=== PATIENT | male | born 1975 | race Two or more races ===

== ENCOUNTER 2016-09-03 16:07 | Emergency (ER) | payer OTHER, SELFPAY ==
[~2016-09-03] VITALS: Ht 165.1 cm; Wt 79.8 kg
[2016-09-03 16:09] VITALS: BP 122/79
[2016-09-03] MEDS ORDERED: IBUPROFEN 200 MG TABLET PO ONE (16:30)
[2016-09-03] MEDS ORDERED: IBUPROFEN 200 MG TABLET ONE (16:58)
== END 2016-09-03 17:28 | disposition home or self-care (01) ==
LOC: ED 17:24
DX: S93.492A Sprain of other ligament of left ankle, initial encounter (principal); X50.1XXA Overexertion from prolonged static or awkward postures, initial encounter; Y93.89 Activity, other specified; Y99.8 Other external cause status; Y92.89 Other specified places as the place of occurrence of the external cause